=== PATIENT | female | born 1955 | race Caucasian/White ===

== ENCOUNTER 2017-07-16 07:31 | Day surgery (SDC) | payer OTHER ==
[~2017-07-16 07:31] MED LIST: CIPRO 250MG TA250 MG PO; PERCOCET 10 MG1 EACH PO; PYRIDIUM 200MG200 MG PO
--- NOTE | 2017-07-16 08:53 | Operative Note ---
Colonoscopy ([facility]) Procedure date: 07/16/17 Date of : 53 Procedure:Colonoscopy Colonoscopy with cold snare polypectomy Indications: Mrs. Chou is a 62-year-old female who is here for initial screening colonoscopy. She reports no abdominal pain, weight loss or rectal bleeding. She does report some postprandial bowel urgency and diarrhea for the last 3 months. She reports no family history of colon cancer. Performing Provider: Arabella Caldwell MD Referrring Provider: Wm Skinner M.D. Sedation: Fentanyl 200 mg IV/Versed 8 mg IV Procedure: Prior to the procedure, a history and physical exam was performed, and patient medications and allergies were reviewed. The risks and benefits of the procedure and the sedation options and risks were discussed with the patient. All questions were answered and informed consent was obtained. Patient identification and proposed procedure were verified by the physician and the nurse. The patient was placed in a left lateral decubitus position. Throughout the procedure, the patient's blood pressure, pulse, and oxygen saturations were monitored continuously. Findings: On digital rectal examination there was normal rectal tone. There were no external hemorrhoids. The colonoscope was introduced through the anal canal to the rectum and advanced to the cecum. The ileocecal valve and appendiceal orifice were identified. The scope was advanced a short distance into the ileum which appeared grossly normal. The scope was then withdrawn into the colon. There were 4 colon polyps identified in the cecum 1, ascending 1, transverse 1 and sigmoid 1. These ranged in size from 4-8 mm and were all removed via cold snare polypectomy. There were scattered diverticuli throughout the descending and sigmoid colon (LEFT colon). The rectum itself was normal. Upon retroflexion within the rectum there were grade 1 internal hemorrhoids. Impressions: 1. Colonic polyps 4 2. Left-sided diverticulosis 3. Grade 1 internal hemorrhoids Recommendations: I will follow up the polyp pathology and recommend repeat colonoscopy again in 5 years based upon the polyp histology. I would encourage fiber supplementation on a long-term daily maintenance basis. Complications: None EBL (ml): 0 at 0840
[2017-07-16 15:06] VITALS: BP 107/56
== END 2017-07-16 09:45 | disposition home or self-care (01) ==
LOC: SDC 07:31
PROVIDERS: Internal Medicine Gastroenterology
PROC: 0DBL8ZX Excision of Transverse Colon, Via Natural or Artificial Opening Endoscopic, Diagnostic (ICD-10-PCS; 2017-07-16)
PROC: 0DBN8ZX Excision of Sigmoid Colon, Via Natural or Artificial Opening Endoscopic, Diagnostic (ICD-10-PCS; 2017-07-16)
PROC: 0DBH8ZX Excision of Cecum, Via Natural or Artificial Opening Endoscopic, Diagnostic (ICD-10-PCS; 2017-07-16)
PROC: 0DBK8ZX Excision of Ascending Colon, Via Natural or Artificial Opening Endoscopic, Diagnostic (ICD-10-PCS; principal; 2017-07-16 08:30)
DX: Z12.11 Encounter for screening for malignant neoplasm of colon (principal); K64.0 First degree hemorrhoids; D12.0 Benign neoplasm of cecum; K63.5 Polyp of colon; K57.30 Diverticulosis of large intestine without perforation or abscess without bleeding; Z79.82 Long term (current) use of aspirin; Z79.899 Other long term (current) drug therapy

== ENCOUNTER 2017-07-28 13:39 | Emergency (ER) | payer OTHER ==
[~2017-07-28] VITALS: Ht 160 cm; Wt 68.0 kg
[2017-07-28] MEDS ORDERED: ZOLPIDEM 10MG T10 MG PO (13:52)
[2017-07-28] MEDS ORDERED: ASPIRIN 81MG TA81 MG PO (13:52)
[2017-07-28] MEDS ORDERED: HYOSCYAMINE0.125 M6 SL (13:52)
[2017-07-28 14:10] LABS: URINE BLOOD 3+ (NEG)
--- NOTE | 2017-07-28 14:13 | Emergency Room Report ---
History of Present Illness Time Seen by MD Méndez Presenting Problem in Triage Pt arrived:Walked Presenting Problem:PT REPORTS L FLANK PAIN RADIATING TO L LOWER ABD THAT BEGAN THIS MORNING Onset of symptoms date/time:07/28/17 or onset unknown for: Treatment Prior to Arrival: HAZ TECH Provided by: Sepsis Risk Assessment: Temp: 97.8 B/P: 94/72 MAP: 79 Pulse: 87 Resp: 20 Recent fever? N Clinical Suspician of Infection? N Mental Status: 1 - Regular (Normal Baseline) Sepsis Risk:Low Sepsis Risk Have you (or family members/close friends) recently traveled outside the [place]? N If Yes, where/when: Have you had exposure to infectious disease within the past month? N TB? Other? Specify: Source patient, RN notes reviewed Exam Limitations no limitations Comment History of Kidney stones and pain that sounds like a stone since this morning...severe pain not relieved with Toradol Cardiac Chest Pain Chest pain indicative of cardiac No ALLERGIES Coded Allergies: tramadol (ITCHING 07/10/17) Home Medications Reported Medications Hyoscyamine Sulfate 0.125 MG SL PRN PRN PAIN #120 Zolpidem Tartrate (Zolpidem 10MG) 10 MG PO QHS PRN SLEEP #15 ASPIRIN (Aspirin) 81 MG PO DAILY History Medical History General CAD? No Angina: No [place]: No Hypertension? No Hyperlipidemia? Yes CHF? No DVT? No PE? No COPD? No Asthma? No Anemia? No GERD? No Gastric ulcers? No GI Bleed? No Hernia? No Thyroid Problems? No Hypothyroidism? No CVA? No Seizures? No Diabetes? No Renal Insuffiency? No End Stage Renal Disease? No UTI? No Stones? Yes GB Disease: No Nephritic Syndrome? No Asplenia? No Hepatitis? No Sickle Cell Disease? No Arthritis? No Migraines? No Cataracts? No Glaucoma? No MRSA? No HIV? No TB? No Anxiety? No Depression? No Cancer? No More? No Immunization Hx DT/Tetanus 5-10 YRS Flu NEVER Pneumonia NEVER Surgical Hx Previous Surgery?Y LITHOTRIPSY 1999 TUBAL LIGATION 1977 BREAST BIOPSY 2004 Family History Family Hx Diabetes No CAD No Hypertension Yes Hyperlipidemia Yes Cancer No TB No Social History Smoking Hx Smoker: Current Every Day Smoker Tobacco: Yes Type Cigarettes Packs/day < 1 Pack Alcohol Alcohol: No Review of Systems All Other Systems Reviewed and Negative Constitutional see HPI Gastrointestinal see HPI Genitourinary see HPI. Physical Exam Vital Signs Vital Signs Date Time Temp Pulse Resp B/P Pulse O2 O2 Flow FiO2 Ox Delivery Rate 07/28 1534 86 18 145/80 95 07/28 1503 97.8 86 18 133/85 97 07/28 1423 86 18 147/78 97 07/28 1417 18 07/28 1355 20 07/28 1342 97.8 87 20 94/72 97 General Appearance moderate distress Respiratory Status No: respiratory distress. 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 Yes Marko was queried for this patient? Yes Reference #: [id number] Risks/benefits of using a controlled substance for treatment were not discussed w/pt Results/Orders Laboratory Tests 07/28/17 1355: Sodium 138, Potassium 4.4, Chloride 104, Carbon Dioxide 29, BUN 25 H, Creatinine 1.1 H, Estimated Creat Clear 56, Estimated GFR (MDRD) 50 L, Glucose 119 H, Calcium 9.5, Total Bilirubin 0.5, AST 21, ALT 32, Alkaline Phosphatase 112, Total Protein 7.7, Albumin 4.4, Globulin 3.3 H, Albumin/Globulin Ratio 1.3 , WBC 10.9 H, RBC 4.95, Hgb 15.1, Hct 44.2, MCV 89.3, RDW 12.3, Plt Count 279, MPV 8.6, Gran % 85.9 H, Gran # 9.3 H, Total Counted 100, Lymphocytes % 10.5, Monocytes % 2.9, Eosinophils % 0.6, Basophils % 0.1, Neutrophils 87 H, Band Neutrophils 2, Lymphocytes (Manual) 3 L, Lymphocytes # 1.2, Monocytes (Manual) 2, Monocytes # 0.3, Eosinophils # 0.1, Basophils # 0.0, Atypical Lymphocytes 6 H, Platelet Estimate NORMAL, PUBS MCHC 34.1, MCH 30.4, Urine Color DK YELLOW, Urine Appearance CLOUDY, Urine pH 5.5, Ur Specific [place] >= 1.030, Urine Protein 2+ H, Urine Ketones TRACE H, Urine Blood 3+ H, Urine Nitrate NEGATIVE , Urine Bilirubin NEGATIVE, Urine Urobilinogen 0.2, Ur Leukocyte Esterase NEGATIVE, Urine RBC 20-50, Urine WBC OCC, Ur Squamous Epith Cells OCC, Urine Bacteria 1+, Urine Glucose NEGATIVE Current Medication Orders Sig/Annalee Start time Last Medication Dose Route Stop Time Status Admin Hydromorphone HCl 0 .STK-MED ONE 07/28 1417 DCr .ROUTE Hydromorphone HCl 1 MG ONCE ONE 07/28 1415 DCr 07/28 IV 07/28 1416 1417 Ondansetron HCl 4 MG ONCE ONE 07/28 1415 CAN IV 07/28 1416 Sodium Chloride 10 ML PRN PRN 07/28 1400 AC IV 07/29 1354 Ketorolac 0 .STK-MED ONE 07/28 1348 DC Tromethamine .ROUTE Sodium Chloride 1,000 ML .STK-MED ONE 07/28 1348 DC IV Ondansetron HCl 0 .STK-MED ONE 07/28 1347 DC .ROUTE Ketorolac 30 MG ONCE ONE 07/28 1345 DC 07/28 Tromethamine IV 07/28 1346 1355 Ondansetron HCl 4 MG ONCE ONE 07/28 1345 DC 07/28 IV 07/28 1346 1355 Sodium Chloride 1,000 ML .Q1H1M 07/28 1345 DC 07/28 IV 07/28 1445 1355 Sodium Chloride 10 ML PRN PRN 07/28 1345 AC IV 07/29 1345 Orders Procedure Date/time Status DIET-NOTHING BY MOUTH 07/[address] ABD & PELVIS W/O CONTRAST 07/[address] ABD/PELVIS REQ 07/28 1455 Complete DIFFERENTIAL-WBC 07/28 1355 Complete IV SALINE LOCK 07/28 1354 Active URINALYSIS/COMPLETE 07/28 1354 Complete CBC WITH AUTO DIFF 07/28 1354 Complete CHEM 12 PROFILE 07/28 1354 Complete XRAY/CT/US XRAY/CT/US CT abdomen, pelvis CT interpretation by discussed w/radiologist Time results known: 1611 CT Results 2 stones in left ureter...4mm at UVJ and 6mm in middle left ureter with Moderate hydronephrosis Departure Departure Time of Disposition 161 Disposition DC Home or Self Care(routine) Clinical Impression Primary Impression: Renal and ureteric calculus Condition STABLE Referrals Wm Skinner MD (Family): 2 Days-Call Office Patient Instructions DI for Kidney Stones, Kidney Stones (Alternative Therapy), Kidney Stones -- Adult Additional Instructions Strain all urine and if stone is passed, take it to PCP to have it sent for analysis. If pain unbearable or any other symptom occurs, return to the ED for re-evaluation. Take medicine as directed. Discharge Counseling Counseled pt/family regarding diagnosis, test results, medications/RX, home care, follow up needs Prescriptions Current Visit Scripts OXYCODONE HCL/ACETAMINOPHEN (Percocet 5-325 MG Tablet) 1 TAB PO Q4HP PRN pain #18 TAB TAMSULOSIN HCL (Flomax) 0.4 MG PO QHS #30 CAP ED Critical Care Critical Care No If Critical Care minutes are documented, the time involved in the performance of seperately reportable procedures was not counted toward critical care time documented. I directly delivered medical care to this critically ill and/or injured patient. Timely evaluation and treatment was necessary to address the significant organ system(s) dysfunction present in this patient. at 4319
[2017-07-28 14:18] LABS: LYMPH # 1.2 K/mm3 (0.7-4.5); LYMPH % 10.5 % (10-50.0); URINE BILIRUBIN - DIPSTICK NEGATIVE (NEG)
[2017-07-28 14:19] LABS: HEMOGLOBIN 15.1 g/dL (12.2-16.2)
[2017-07-28 14:27] LABS: URINE SQUAMOUS CELLS OCC #/hpf (0-5)
[2017-07-28 14:48] LABS: NEUTROPHILS 87 % (42-76)
[2017-07-28] MEDS ORDERED: PERCOCET1 TAB PO (16:18)
[2017-07-28] MEDS ORDERED: FLOMAX0.4 MG PO (16:18)
--- NOTE | 2017-07-28 16:56 | RADIOLOGY REPORT PS360 ---
CT ABD PELVIS W/O CONTRAST CLINICAL INDICATION: Left flank pain with hematuria and history of kidney stones LEFT FLANK PAIN; STONE PROTOCOL ORDERING PHYSICIAN: Carson Sanchez MD PATIENT AGE: 62 years COMPARISON: None TECHNIQUE: Axial images obtained with sagittal and coronal reformats. PROCEDURE: Oral Contrast: None IV Contrast: None . FINDINGS: Lung bases are clear. There is diffuse fatty liver. No radio opaque gallstones. The spleen, adrenal glands, and pancreas have an unremarkable unenhanced CT appearance. There is moderate left-sided hydronephrosis and hydroureter secondary to a 7 mm stone in the mid left ureter at the L4 level. There is an additional 5 mm stone just distal to this region at the pelvic inlet on the left. There is left nephrolithiasis with a 5 mm stone in the upper pole the left kidney. There is moderate left perinephric and periureteral fat. Nonobstructing punctate stone is present in the mid aspect of the right kidney. There is diverticulosis of the sigmoid colon. The cecum lies in the left lower quadrant appendix at the umbilical level. No evidence of appendicitis. There is mild thickening of the ascending colon which may be due to nondistention or colitis. No pelvic mass or abnormal fluid collection is evident. IMPRESSION: 1. Moderate left-sided hydronephrosis and hydroureter secondary to a 7 mm stone in the mid left ureter in the 5 mm stone in the distal left ureter. 2. Bilateral nephrolithiasis. 3. Mild thickening of the ascending colon which may be due to nondistention or colitis with scattered diverticula noted in the sigmoid colon
[2017-07-28 16:59] VITALS: BP 121/52
--- OUTSIDE RECORDS SUMMARY | 2017-07-29 04:22 | External Medical Summary Rpt | CCD ---
Author Author [facility] Organization [facility] Address Unknown Phone Unavailable Purpose Continuity of Care Document - through 2016
--- OUTSIDE RECORDS SUMMARY | 2017-07-29 04:22 | External Medical Summary Rpt | CCD ---
Demographics Preferred Language Malay Marital Status Unknown Congregation Affiliation Unknown Race Unknown Ethnic Group Unknown Author Author , JACQUELINE PHILLIPS Address Unknown Phone Immunization No patient found.
--- OUTSIDE RECORDS SUMMARY | 2017-07-29 04:22 | External Medical Summary Rpt | CCD ---
Demographics Preferred Language Luxembourgish Marital Status Unknown Adventist Affiliation Unknown Race Unknown Ethnic Group Unknown Author Author , JACQUELINE PHILLIPS Address Unknown Phone Immunization No patient found.
== END 2017-07-28 17:00 | disposition home or self-care (01) ==
LOC: ER 13:39
PROVIDERS: General Practice
DX: N13.2 Hydronephrosis with renal and ureteral calculous obstruction (principal); Z87.442 Personal history of urinary calculi; Z79.82 Long term (current) use of aspirin; E78.5 Hyperlipidemia, unspecified; F17.210 Nicotine dependence, cigarettes, uncomplicated
CPT/HCPCS: J2405